=== PATIENT | male | born 1995 | race Caucasian/White ===

== ENCOUNTER → 2020-12-03 09:29 | Outpatient (CLI) | payer BC, SELFPAY ==
--- NOTE | ~2020-12-03 | XR_ITS ---
EXAMINATION: XR knee LT 3V DATE: 12/03/2020 09:46 INDICATION: Left knee pain. TECHNIQUE: 3 views of left knee were obtained. COMPARISON: None. FINDINGS: Bone alignment is normal. No fracture. There is mild osteoarthritis of patellofemoral real rtment characterized by a tiny marginal osteophyte. No knee joint effusion. IMPRESSION: 1. Mild left knee osteoarthritis. Reviewed, dictated and finalized at location A. INSPECTOR
--- NOTE | ~2020-12-03 | XR_ITS ---
EXAMINATION: XR knee RT 3V DATE: 12/03/2020 09:46 INDICATION: Right knee pain. TECHNIQUE: 3 views of right knee were obtained. COMPARISON: None. FINDINGS: Bone alignment is normal. No fracture. Joint spaces are well maintained. There is a small k nee joint effusion. IMPRESSION: 1. Small right knee joint effusion. Reviewed, dictated and finalized at location A. ORK MGR
== END ==
PROVIDERS: PCP Family Medicine; Visit Provider Physician Assistant
DX: M25.561 Pain in right knee (principal); M17.12 Unilateral primary osteoarthritis, left knee
CPT/HCPCS: 73562

== ENCOUNTER 2022-04-09 00:50 | Emergency (ER) | payer BC, SELFPAY ==
[2022-04-09 00:50] VITALS: BP 130/86; PULSE 86; RESP 20; TEMP 36.8; O2SAT 99
[2022-04-09 00:57] VITALS: O2SAT 99
--- NOTE | 2022-04-09 02:05 | ED.SOB ---
HPI - SOB/Dyspnea General Chief Complaint: Shortness of Breath/Dyspnea Stated Complaint: sob Time Seen by Provider: 04/09/22 01:20 History of Present Illness HPI Narrative: Patient is a 26-year-old male who presents ER with shortness of breath. It began this evening and lasted for about 2 hours and he could not go to sleep. Reports he was just focusing on his breathing. No chest pain or chest tightness. He cannot hear any wheezing. Reports he had asthma as a child. No fevers or chills or sweats. No sore throat or productive cough. He does report he had an anxiety attack earlier in the day which is atypical of him. He reports increased stress at home with a child and other social situations he does not wish to discuss. No drug use. Patient has had no racing heart. He reports he did change a guinea pig cage and he became little short of breath shortly after it. He also thinks that he may be developing some seasonal allergies as he has noticed some very mild congestion over the last month. Related Data Home Medications Medication Instructions Recorded Confirmed No Home Medications 09/07/20 09/07/20 Allergies Allergy/AdvReac Type Severity Reaction Status Date / Time No Known Allergies Allergy Verified 04/09/22 00:58 Review of Systems Review of Systems: All systems reviewed & are unremarkable except as noted in HPI and below Constitutional: Constitutional: Denies chills, Denies fatigue and Denies fever(s) ENT: Reports nasal congestion and Denies sore throat Cardiovascular: Cardiovascular: Denies chest pain, Denies rapid heart rate and Denies radiating jaw, neck or arm pain Respiratory: Respiratory: Denies cough, Reports dyspnea and Denies wheezing PMF Past Medical History Medical History (Updated 04/09/22 @ 02:10 by Virgil Coon MD) Anxiety Healthy adult Surgical History Surgical History (Updated 04/09/22 @ 02:07 by Virgil Coon MD) No pertinent past surgical history Family History Family History Grandparent Family history of coronary artery disease Social History Social History (Updated 12/03/20 @ 08:52 by Heidi Montenegro CMA) Smoking status: Never smoker Alcohol intake: current Drinks per week: 10 Alcohol use details: couple times a week Substance use: never Exam Narrative: GENERAL: Well-appearing, well-nourished, and in no acute distress. HEAD: Normocephalic, atraumatic. CHEST: Clear to auscultation. No respiratory distress. HEART: Regular rate and rhythm. Normal peripheral pulses. ABDOMEN: Soft, nontender, nondistended. EXTREMITIES: Normal range of motion. No edema. SKIN: Warm, dry, no rash. NEURO: Alert and oriented x3. PSYCH: Normal mood and affect.o Course Course Emergency Course: Patient looks well and resting comfortably. No complaints at this time. Suspect some mild anxiety. Lungs clear. Discharge home. Vital Signs Vital signs: Vital Signs Temperature 98.2 F 04/09/22 00:50 Pulse Rate 86 04/09/22 00:50 Respiratory Rate 20 04/09/22 00:50 Blood Pressure 130/86 04/09/22 00:50 Pulse Oximetry 99 04/09/22 00:50 Oxygen Delivery Room Air 04/09/22 00:50 Temperature 98.2 F 04/09/22 00:50 Pulse Rate 86 04/09/22 00:50 Respiratory Rate 20 04/09/22 00:50 Blood Pressure 130/86 04/09/22 00:50 Pulse Oximetry 99 04/09/22 00:57 Oxygen Delivery Room Air 04/09/22 00:57 Discharge Plan Discharge Clinical Impression: Dyspnea, unspecified Patient Disposition: Still a Patient Condition: Stable Instructions: Dyspnea (ED) Additional Instructions: Return the ER if you have worsening shortness of breath. Additionally return if you lose consciousness, you have chest pain, you develop fever over 100.4 ?F, you have concerns. Prescriptions: No Action No Home Medications Follow-up/Referrals: Crystal Prince MD [Primary Car
[2022-04-09 02:19] VITALS: BP 124/73; PULSE 85; RESP 16; O2SAT 97
== END 2022-04-09 02:24 | disposition still patient (30) ==
PROVIDERS: Emergency Provider Emergency Medicine; PCP Family Medicine
DX: R06.00 Dyspnea, unspecified (principal)
CPT/HCPCS: 99281